=== PATIENT | female | born 1970 | race Caucasian/White ===

== ENCOUNTER 2016-08-27 19:40 | Emergency (ER) | payer OTHER ==
[~2016-08-27] VITALS: Ht 175.2 cm; Wt 122.5 kg
[~2016-08-27 19:40] MED LIST: ALLEGRA ALLERG180 M2 PO; ANTIBIOTIC O500 U/GM TP; BACTRIM DS 8001 TA1 PO; HYCODAN,HYDROME10 ML PO; HYDROCODONE BIT1 T11 PO; KEFLEX500 MG PO; KENALOG 0.1%80 GM T; PREDNICOT20 MG PO; PREDNISONE10 MG PO; PREDNISONE20 M1 PO; PROVENTIL0.09 MG/A1 INH; TESSALON PERLE100 M1 PO; VISTARIL50 MG PO; ZITHROMAX Z PA250 MG PO; ZITHROMAX250 MG PO
[2016-08-27] MEDS ORDERED: CEPHALEXIN500 M1 PO (20:26)
== END 2016-08-27 20:37 | disposition home or self-care (01) ==
LOC: ED 19:40
DX: T63.441A Toxic effect of venom of bees, accidental (unintentional), initial encounter (principal); F17.200 Nicotine dependence, unspecified, uncomplicated; Z79.899 Other long term (current) drug therapy; Y92.9 Unspecified place or not applicable

== ENCOUNTER 2016-11-22 19:10 | Emergency (ER) | payer OTHER ==
[~2016-11-22] VITALS: Ht 175.2 cm; Wt 123.8 kg
[~2016-11-22 19:10] MED LIST changes: +CEPHALEXIN500 M1 PO
[2016-11-22 19:42] LABS: BILIRUBIN NEGATIVE (NEGATIVE); BLOOD 2+ (NEGATIVE); CLARITY SL CLOUDY (CLEAR); COLOR YELLOW (YELLOW); GLUCOSE NEGATIVE (NEGATIVE); KETONE TRACE (NEGATIVE); LEUKO ESTERASE NEGATIVE (NEGATIVE); NITRITE NEGATIVE (NEGATIVE); SPECIFIC GRAVITY >= 1.030 (1.005-1.030); UROBILINOGEN 0.2 E.U./dl (0.2-1.0)
[2016-11-22 19:51] LABS: WBC 0-2 wbc/hpf (0-5)
[2016-11-22 19:52] LABS: BACTERIA 2+; MUCOUS TRACE
[2016-11-22] MEDS ORDERED: BENTYL10 MG PO (21:17)
[2016-11-22] MEDS ORDERED: NORCO 5-325 TA1 EACH PO (21:17)
== END 2016-11-22 22:56 | disposition home or self-care (01) ==
LOC: ED 19:10
PROVIDERS: Physician Assistant
DX: K80.20 Calculus of gallbladder without cholecystitis without obstruction (principal); F17.200 Nicotine dependence, unspecified, uncomplicated

== ENCOUNTER 2017-10-28 14:07 | Emergency (ER) | payer OTHER ==
[~2017-10-28] VITALS: Ht 175.2 cm; Wt 124.7 kg
--- NOTE | ~2017-10-28 | EKG ---
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
[~2017-10-28 14:07] MED LIST changes: +BENTYL10 MG PO; +NORCO 5-325 TA1 EACH PO
[2017-10-28 15:18] LABS: BILIRUBIN NEGATIVE (NEGATIVE); BLOOD TRACE-LYSED (NEGATIVE); CLARITY SL CLOUDY (CLEAR); COLOR YELLOW (YELLOW); GLUCOSE NEGATIVE (NEGATIVE); KETONE NEGATIVE (NEGATIVE); LEUKO ESTERASE 3+ (NEGATIVE); NITRITE NEGATIVE (NEGATIVE); PH 6.5 (5.0-9.0); SPECIFIC GRAVITY <= 1.005 (1.005-1.030); UROBILINOGEN 0.2 E.U./dl (0.2-1.0)
[2017-10-28 15:27] LABS: EPITHELIAL CELLS 15-20; WBC 21-30 wbc/hpf (0-5)
[2017-10-28 15:41] LABS: BASO # 0.1 10*3/uL (0.0-0.1); BASO % 0.7 % (0.0-1.0); EOS # 0.1 10*3/uL (0.0-0.4); EOS % 1.4 % (1.0-4.0); HEMATOCRIT 44.4 % (37.0-47.0); HEMOGLOBIN 14.2 g/dl (12.0-16.0); MEAN CELL VOLUME 94.9 fl (81.0-99.0); MEAN CORPUSCULAR HGB 30.3 pg (27.0-31.0); MEAN PLATELET VOLUME 11.8 fl (9.6-12.3); MONO # 0.6 10*3/uL (0.1-1.0); MONO % 7.9 % (3.0-9.0); NEUT # 4.2 10*3/uL (2.3-7.9); NEUT % 60.9 % (47.0-73.0); PLATELET COUNT AUTOMATED 178 10*3/uL (130-400); RED BLOOD COUNT 4.68 10*6/uL (4.10-5.10); RED CELL DISTRI WIDTH 13.4 % (0-14.5)
[2017-10-28 15:55] LABS: ALBUMIN 3.3 gm/dl (3.1-4.5); ALKALINE PHOSPHATASE 101 U/L (45-117); BUN 10 mg/dl (7-24); CHLORIDE 110 mmol/L (98-107); CREATININE 0.71 mg/dL (0.55-1.02); POTASSIUM 3.7 mmol/L (3.5-5.1); SGOT/AST 17 IU/L (3-35); SGPT/ALT 44 U/L (12-78); SODIUM 143 mmol/L (136-145); TOTAL PROTEIN 7.1 gm/dL (6.4-8.2)
[2017-10-28] MEDS ORDERED: CEFADROXIL500 M1 PO (16:04)
[2017-10-28] MEDS ORDERED: SEPTDS PO (16:04)
== END 2017-10-28 16:19 | disposition home or self-care (01) ==
LOC: ED 14:07
PROVIDERS: Physician Assistant
DX: L03.311 Cellulitis of abdominal wall (principal); N39.0 Urinary tract infection, site not specified; R60.0 Localized edema; F17.200 Nicotine dependence, unspecified, uncomplicated; Z90.710 Acquired absence of both cervix and uterus

== ENCOUNTER 2017-12-27 09:40 | Emergency (ER) | payer OTHER ==
[~2017-12-27] VITALS: Ht 175.2 cm; Wt 136.1 kg
[~2017-12-27 09:40] MED LIST changes: +CEFADROXIL500 M1 PO; +SEPTDS PO
[2017-12-27 10:14] LABS: BASO # 0.1 10*3/uL (0.0-0.1); BASO % 0.8 % (0.0-1.0); EOS # 0.2 10*3/uL (0.0-0.4); EOS % 2.7 % (1.0-4.0); HEMATOCRIT 47.3 % (37.0-47.0); HEMOGLOBIN 14.9 g/dl (12.0-16.0); LYMPH # 2.5 10*3/uL (1.3-4.4); LYMPH % 28.9 % (27.0-41.0); MEAN CELL VOLUME 96.3 fl (81.0-99.0); MEAN CORPUSCULAR HGB 30.3 pg (27.0-31.0); MEAN CORPUSCULAR HGB CONC 31.5 g/dl (33.0-37.0); MEAN PLATELET VOLUME 11.6 fl (9.6-12.3); MONO # 0.7 10*3/uL (0.1-1.0); MONO % 7.4 % (3.0-9.0); NEUT # 5.2 10*3/uL (2.3-7.9); PLATELET COUNT AUTOMATED 213 10*3/uL (130-400); RED BLOOD COUNT 4.91 10*6/uL (4.10-5.10); RED CELL DISTRI WIDTH 13.4 % (0-14.5); WHITE BLOOD COUNT 8.7 10*3/uL (4.8-10.8)
[2017-12-27 10:28] LABS: ALBUMIN 3.6 gm/dl (3.1-4.5); ALKALINE PHOSPHATASE 111 U/L (45-117); BUN 9 mg/dl (7-24); CHLORIDE 109 mmol/L (98-107); CREATININE 0.89 mg/dL (0.55-1.02); POTASSIUM 3.9 mmol/L (3.5-5.1); SGOT/AST 21 IU/L (3-35); SGPT/ALT 47 U/L (12-78); SODIUM 143 mmol/L (136-145); TOTAL PROTEIN 7.4 gm/dL (6.4-8.2)
[2017-12-27] MEDS ORDERED: VIBRAMYCIN100 MG PO (11:10)
== END 2017-12-27 11:23 | disposition home or self-care (01) ==
LOC: ED 09:40
PROVIDERS: Nurse Practitioner Family
DX: L03.115 Cellulitis of right lower limb (principal); R03.0 Elevated blood-pressure reading, without diagnosis of hypertension; Z88.2 Allergy status to sulfonamides; Z90.710 Acquired absence of both cervix and uterus

== ENCOUNTER 2018-05-20 23:03 | Emergency (ER) | payer OTHER ==
[~2018-05-20] VITALS: Ht 175.2 cm; Wt 131.5 kg
--- NOTE | ~2018-05-20 | EKG ---
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
[~2018-05-20 23:03] MED LIST changes: +VIBRAMYCIN100 MG PO
[2018-05-20 23:49] VITALS: BP 117/79
[2018-05-20 23:54] LABS: BASO # 0.1 10*3/uL (0.0-0.1); BASO % 0.7 % (0.0-1.0); EOS # 0.1 10*3/uL (0.0-0.4); EOS % 0.8 % (1.0-4.0); HEMATOCRIT 49.9 % (37.0-47.0); HEMOGLOBIN 15.9 g/dl (12.0-16.0); LYMPH # 2.8 10*3/uL (1.3-4.4); LYMPH % 30.1 % (27.0-41.0); MEAN CELL VOLUME 93.8 fl (81.0-99.0); MEAN CORPUSCULAR HGB 29.9 pg (27.0-31.0); MEAN CORPUSCULAR HGB CONC 31.9 g/dl (33.0-37.0); MEAN PLATELET VOLUME 11.9 fl (9.6-12.3); MONO # 0.7 10*3/uL (0.1-1.0); NEUT # 5.5 10*3/uL (2.3-7.9); NEUT % 59.4 % (47.0-73.0); PLATELET COUNT AUTOMATED 227 10*3/uL (130-400); RED BLOOD COUNT 5.32 10*6/uL (4.10-5.10); RED CELL DISTRI WIDTH 13.7 % (0-14.5); WHITE BLOOD COUNT 9.2 10*3/uL (4.8-10.8)
[2018-05-21 00:11] LABS: ACT PARTIAL THROMBO TIME 23.5 SECONDS (20.8-31.5); INTERNATIONAL NORM RATIO 0.9 (2.0-3.5)
[2018-05-21 00:12] LABS: ALBUMIN 3.3 gm/dl (3.1-4.5); ALKALINE PHOSPHATASE 116 U/L (45-117); BUN 15 mg/dl (7-24); CHLORIDE 110 mmol/L (98-107); CREATININE 0.92 mg/dL (0.55-1.02); POTASSIUM 3.4 mmol/L (3.5-5.1); SGOT/AST 14 IU/L (3-35); SGPT/ALT 38 U/L (12-78); SODIUM 142 mmol/L (136-145); TOTAL PROTEIN 7.4 gm/dL (6.4-8.2)
[2018-05-21 00:14] LABS: TROPONIN I < 0.015 ng/ml (<0.045)
== END 2018-05-21 02:30 | disposition left against medical advice (07) ==
LOC: ED 23:03 → EDHOLD 23:53 → ED 23:53
PROVIDERS: Student in an Organized Health Care Education/Training Program
DX: R07.89 Other chest pain (principal); R00.0 Tachycardia, unspecified; Z79.2 Long term (current) use of antibiotics; Z79.899 Other long term (current) drug therapy; Z86.73 Personal history of transient ischemic attack (TIA), and cerebral infarction without residual deficits; Z90.710 Acquired absence of both cervix and uterus

== ENCOUNTER 2018-08-18 21:05 | Emergency (ER) | payer OTHER ==
[~2018-08-18] VITALS: Ht 175.2 cm; Wt 129.3 kg
[2018-08-18] MEDS ORDERED: CEPHALEXIN500 M1 PO (21:41)
[2018-08-18] MEDS ORDERED: SEPTDS PO (21:41)
== END 2018-08-18 21:34 | disposition home or self-care (01) ==
LOC: ED 21:05
DX: L02.414 Cutaneous abscess of left upper limb (principal); F17.200 Nicotine dependence, unspecified, uncomplicated; Z79.2 Long term (current) use of antibiotics

== ENCOUNTER 2018-09-07 14:20 | Emergency (ER) | payer OTHER ==
[~2018-09-07] VITALS: Ht 175.2 cm; Wt 134.7 kg
== END 2018-09-07 17:40 | disposition home or self-care (01) ==
LOC: ED 14:20
DX: S93.401A Sprain of unspecified ligament of right ankle, initial encounter (principal); W22.8XXA Striking against or struck by other objects, initial encounter; Y93.89 Activity, other specified; Y92.098 Other place in other non-institutional residence as the place of occurrence of the external cause; Y99.8 Other external cause status

== ENCOUNTER → 2018-09-25 | Outpatient (CLI) | payer OTHER ==
--- NOTE | ~2018-09-25 | PF ---
[place], [place] PULMONARY FUNCTION TEST NAME: NAWAF BORRERO [facility] #: [id number] UNIT #: [id number] ROOM: DOCTOR: FERNY GAN MD,MOE BIRTHDATE: [birth year] DOS: 09/25/2018 ORDERED BY: Dr. Snyder. HISTORY: The patient is recorded as a 48-year-old female, height of 69 inches, weight of 297 pounds, BMI of 43.9. The patient was reported with symptoms of shortness of breath with exertion and history of chronic nicotine dependence. The patient reported tobacco use, 2 packs of cigarettes per day for 34 years. SPIROMETRY: FVC was recorded as 3.05 liters at 74% predicted value. FEV1 of 2.37 liters, 73% predicted value with ratio of FEV1/FVC 78%. A 14% partial improvement was noted postbronchodilator FEV1. Flow volume was suggestive of reversible obstructive lung disease. LUNG VOLUME: Thoracic gas volume recorded was 83%, residual volume 108%, total lung capacity of 93%. The patient's lung diffusion was recorded 101% and the patient's airway resistance and passive conductance is normal. FINAL IMPRESSION: Current test is suggestive of finding consistent with mild reversible obstructive lung disease or bronchial asthma. MOE ISAACS MD CM:PFREPORT:PULMONARY FUNCTION TEST [id number] MOE GAN MD
== END | disposition home or self-care (01) ==
LOC: CP 12:07 → EDSTATUS 12:09 → CP 12:10
DX: R06.09 Other forms of dyspnea (principal); Z72.0 Tobacco use

== ENCOUNTER 2018-12-19 05:37 | Emergency (ER) | payer OTHER ==
[~2018-12-19] VITALS: Ht 175.2 cm; Wt 113.4 kg
--- NOTE | ~2018-12-19 | EKG ---
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1970 Requested By: BHUMI ELIZONDO Order Number: [id number] Reading MD: Kunal Ford Measurements Intervals [place] Rate: 82 P: 66 DE: 141 QRS: 42 QRSD: 89 T: 122 QT: 367 QTc: 429 Interpretive Statements Sinus rhythm Nonspecific T abnormalities, lateral leads Compared to ECG 05/20/2018 22:56:00 T-wave abnormality now present Sinus tachycardia no longer present Ventricular premature complex(es) no longer present Aberrant conduction of supraventricular beat(s) no longer present Electronically Signed On 12-19-2018 8:05:54 PDT by Kunal Ford CM:EKGRPT:ELECTROCARDIOGRAM REPORT [id number] BHUMI ELIZONDO MD [facility] RE[facility] BHUMI ELIZONDO MD
[2018-12-19 06:19] LABS: BASO # 0.1 10*3/uL (0.0-0.1); BASO % 0.5 % (0.0-1.0); EOS # 0.2 10*3/uL (0.0-0.4); EOS % 1.7 % (1.0-4.0); HEMATOCRIT 44.9 % (37.0-47.0); HEMOGLOBIN 14.2 g/dl (12.0-16.0); LYMPH # 2.3 10*3/uL (1.3-4.4); LYMPH % 24.3 % (27.0-41.0); MEAN CELL VOLUME 97.2 fl (81.0-99.0); MEAN CORPUSCULAR HGB 30.7 pg (27.0-31.0); MEAN CORPUSCULAR HGB CONC 31.6 g/dl (33.0-37.0); MEAN PLATELET VOLUME 11.8 fl (9.6-12.3); MONO # 0.8 10*3/uL (0.1-1.0); MONO % 8.4 % (3.0-9.0); NEUT # 6.2 10*3/uL (2.3-7.9); NEUT % 64.9 % (47.0-73.0); PLATELET COUNT AUTOMATED 190 10*3/uL (130-400); RED BLOOD COUNT 4.62 10*6/uL (4.10-5.10); RED CELL DISTRI WIDTH 13.6 % (0-14.5); WHITE BLOOD COUNT 9.5 10*3/uL (4.8-10.8)
[2018-12-19 06:38] LABS: ACT PARTIAL THROMBO TIME 25.2 SECONDS (20.0-32.1); INTERNATIONAL NORM RATIO 0.9 (2.0-3.5)
[2018-12-19 06:41] LABS: ALBUMIN 3.1 gm/dl (3.1-4.5); ALKALINE PHOSPHATASE 107 U/L (45-117); BUN 17 mg/dl (7-24); CHLORIDE 109 mmol/L (98-107); CREATININE 1.01 mg/dL (0.55-1.02); LIPASE 127 U/L (73-393); POTASSIUM 3.7 mmol/L (3.5-5.1); SGOT/AST 10 IU/L (3-35); SGPT/ALT 32 U/L (12-78); SODIUM 141 mmol/L (136-145)
[2018-12-19 06:42] LABS: TROPONIN I < 0.015 ng/ml (<0.045)
[2018-12-19] MEDS ORDERED: CYCLOBENZAPRINE10 MG PO (08:34)
[2018-12-19] MEDS ORDERED: Motrin,Rufen800 MG PO (08:34)
== END 2018-12-19 08:40 | disposition home or self-care (01) ==
LOC: ED 05:37
PROVIDERS: Emergency Medicine Emergency Medical Services
DX: S39.012A Strain of muscle, fascia and tendon of lower back, initial encounter (principal); M54.6 Pain in thoracic spine; E66.9 Obesity, unspecified; I10 Essential (primary) hypertension; Z86.718 Personal history of other venous thrombosis and embolism; Z90.710 Acquired absence of both cervix and uterus; X50.1XXA Overexertion from prolonged static or awkward postures, initial encounter; Y93.89 Activity, other specified; Y92.89 Other specified places as the place of occurrence of the external cause; Y99.8 Other external cause status

== ENCOUNTER → 2018-12-23 | Outpatient (CLI) | payer OTHER ==
[~2018-12-23] MED LIST changes: +CYCLOBENZAPRINE10 MG PO; +Motrin,Rufen800 MG PO
== END | disposition home or self-care (01) ==
LOC: CARD 10-28 14:00
DX: I05.9 Rheumatic mitral valve disease, unspecified (principal)

== ENCOUNTER 2019-11-14 19:46 | Emergency (ER) | payer OTHER ==
[~2019-11-14] VITALS: Ht 175.2 cm; Wt 132.4 kg
== END 2019-11-14 23:22 | disposition home or self-care (01) ==
LOC: ED 19:46
DX: S86.911A Strain of unspecified muscle(s) and tendon(s) at lower leg level, right leg, initial encounter (principal); Z79.899 Other long term (current) drug therapy; X58.XXXA Exposure to other specified factors, initial encounter; Y93.89 Activity, other specified; Y92.89 Other specified places as the place of occurrence of the external cause; Y99.8 Other external cause status

== ENCOUNTER → 2019-11-26 | Outpatient (CLI) | payer OTHER | END | disposition home or self-care (01) | LOC: MRI 12:34 | PROVIDERS: ATTEND Psychiatry & Neurology Psychiatry | DX: S83.241A Other tear of medial meniscus, current injury, right knee, initial encounter (principal); S83.281A Other tear of lateral meniscus, current injury, right knee, initial encounter; S83.8X1A Sprain of other specified parts of right knee, initial encounter; S83.411A Sprain of medial collateral ligament of right knee, initial encounter; M71.21 Synovial cyst of popliteal space [Baker], right knee; M25.761 Osteophyte, right knee; M25.461 Effusion, right knee; M85.661 Other cyst of bone, right lower leg; M17.5 Other unilateral secondary osteoarthritis of knee; X58.XXXA Exposure to other specified factors, initial encounter; Y93.89 Activity, other specified; Y92.89 Other specified places as the place of occurrence of the external cause; Y99.8 Other external cause status ==

== ENCOUNTER → 2019-12-28 | Outpatient (CLI) | payer OTHER | END | disposition home or self-care (01) | LOC: COVID19 00:50 | PROVIDERS: ATTEND Orthopaedic Surgery | DX: Z01.812 Encounter for preprocedural laboratory examination (principal); Z20.828 Contact with and (suspected) exposure to other viral communicable diseases ==

== ENCOUNTER → 2019-12-31 | Day surgery (SDC) | payer OTHER ==
[2019-12-25 12:53] VITALS: BP 157/88
[2019-12-28 11:52] LABS: BASO % 0.4 % (0.0-1.0); EOS # 0.1 10*3/uL (0.0-0.4); EOS % 1.5 % (1.0-4.0); HEMATOCRIT 50.5 % (37.0-47.0); LYMPH # 1.6 10*3/uL (1.3-4.4); LYMPH % 23.4 % (27.0-41.0); MEAN CELL VOLUME 96.6 fl (81.0-99.0); MEAN CORPUSCULAR HGB 29.6 pg (27.0-31.0); MEAN CORPUSCULAR HGB CONC 30.7 g/dl (33.0-37.0); MEAN PLATELET VOLUME 11.9 fl (9.6-12.3); MONO # 0.5 10*3/uL (0.1-1.0); MONO % 6.5 % (3.0-9.0); NEUT # 4.7 10*3/uL (2.3-7.9); NEUT % 67.9 % (47.0-73.0); PLATELET COUNT AUTOMATED 200 10*3/uL (130-400); RED BLOOD COUNT 5.23 10*6/uL (4.10-5.10); RED CELL DISTRI WIDTH 13.8 % (0-14.5); WHITE BLOOD COUNT 6.9 10*3/uL (4.8-10.8)
[2019-12-28 12:17] LABS: BUN 10 mg/dl (7-24); CHLORIDE 108 mmol/L (98-107); CREATININE 0.76 mg/dL (0.55-1.02); POTASSIUM 4.1 mmol/L (3.5-5.1); SODIUM 144 mmol/L (136-145)
[~2019-12-31] VITALS: Ht 175.2 cm; Wt 143.8 kg
[2019-12-31 08:45] VITALS: BP 180/99
[2019-12-31 11:08] VITALS: BP 199/79
[2019-12-31 11:23] VITALS: BP 206/68
[2019-12-31 11:39] VITALS: BP 162/78
[2019-12-31 11:53] VITALS: BP 129/72
[2019-12-31 12:07] VITALS: BP 149/77
== END ==
LOC: SDC 12-25 12:30
PROVIDERS: ATTEND Orthopaedic Surgery
DX: S83.231A Complex tear of medial meniscus, current injury, right knee, initial encounter (principal); M23.300 Other meniscus derangements, unspecified lateral meniscus, right knee; M17.11 Unilateral primary osteoarthritis, right knee; I10 Essential (primary) hypertension; J44.9 Chronic obstructive pulmonary disease, unspecified; Z90.49 Acquired absence of other specified parts of digestive tract; Z90.710 Acquired absence of both cervix and uterus; Z98.890 Other specified postprocedural states; X58.XXXA Exposure to other specified factors, initial encounter; Y93.89 Activity, other specified; Y92.89 Other specified places as the place of occurrence of the external cause; Y99.8 Other external cause status

== ENCOUNTER 2021-08-02 08:49 | Emergency (ER) | payer OTHER ==
[~2021-08-02] VITALS: Wt 131.5 kg
== END 2021-08-02 11:52 | disposition home or self-care (01) ==
LOC: ED 08:49
DX: H61.21 Impacted cerumen, right ear (principal); I10 Essential (primary) hypertension; Z90.710 Acquired absence of both cervix and uterus; Z98.890 Other specified postprocedural states; Z90.49 Acquired absence of other specified parts of digestive tract

== ENCOUNTER 2023-04-17 21:25 | Inpatient (IN) | payer OTHER ==
[~2023-04-17] VITALS: Ht 175.2 cm; Wt 156.5 kg
[2023-04-17] MEDS ORDERED: ADENOSINE 12 MG IV ONE (21:45)
[2023-04-17] MEDS ORDERED: ADENOSINE 6 MG/2 ML VIAL IV ONE ×4 (21:45→21:57)
[2023-04-17] MEDS ORDERED: SODIUM CHLORIDE 0.9% 1,000 ML IV ONE ×2 (21:55→21:57)
[2023-04-17] MEDS ORDERED: Metoprolol Tartrate 5 MG/5 ML VIAL IV ONE ×2 (21:55→22:45)
[2023-04-17 22:00] VITALS: BP 134/53
[2023-04-17] MEDS ORDERED: DILTIAZEM IV ONE (22:00)
[2023-04-17] MEDS ORDERED: methylPREDNISolone sod succ 125 MG VIAL IV ONE (22:20)
[2023-04-17 22:33] VITALS: BP 167/99
[2023-04-17 22:33] LABS: HEMATOCRIT 52.4 % (37.0-47.0); MEAN CELL VOLUME 97.4 fl (81.0-99.0); MEAN CORPUSCULAR HGB 28.8 pg (27.0-31.0); MEAN CORPUSCULAR HGB CONC 29.6 g/dl (33.0-37.0); MEAN PLATELET VOLUME 10.9 fl (9.6-12.3); NUCLEATED RED BLOOD CELL 0.4 10*3/uL (0.0-0.0); NUCLEATED RED BLOOD CELL 2.8 % (0.0-0.0); PLATELET COUNT AUTOMATED 263 10*3/uL (130-400); RED BLOOD COUNT 5.38 10*6/uL (4.10-5.10); RED CELL DISTRI WIDTH 15.3 % (0-14.5); WHITE BLOOD COUNT 12.7 10*3/uL (4.8-10.8)
[2023-04-17 22:36] LABS: MANUAL DIFF REFLEX YES
[2023-04-17 22:45] LABS: ACT PARTIAL THROMBO TIME 27.9 SECONDS (20.0-32.1)
[2023-04-17] MEDS ORDERED: SODIUM CHLORIDE 0.9% 1,000 ML IV SCH (22:45)
[2023-04-17] MEDS ORDERED: Ceftriaxone Sodium 1 GM/10 ML SYR IV ONE (22:45)
[2023-04-17] MEDS ORDERED: AZITHROMYCIN 250 ML IV ONE (22:45)
[2023-04-17 22:46] VITALS: BP 185/90
[2023-04-17 22:53] LABS: ALKALINE PHOSPHATASE 114 U/L (46-116); BUN 12 mg/dl (9-23); CHLORIDE 99 mmol/L (98-107); POTASSIUM 2.9 mmol/L (3.4-5.1); SGPT/ALT 30 U/L (5-49); TOTAL PROTEIN 7.6 gm/dL (6.0-8.0)
[2023-04-17 22:57] LABS: PLATELET SUFFICIENCY NORMAL (NORMAL); POLYCHROMASIA SLIGHT; TOTAL CELLS COUNTED 100 #CELLS
[2023-04-17 22:59] VITALS: BP 170/98
[2023-04-17] MEDS ORDERED: Midazolam Hydrochloride 2 MG/2 ML VIAL IV ONE (23:05)
[2023-04-17 23:16] VITALS: BP 94/55
[2023-04-18] VITALS (16 sets, daily range): BP systolic 112–175; BP diastolic 65–99
[2023-04-18] MEDS ORDERED: POTASSIUM CHLORIDE IN WATER 100 ML IV SCH (01:00)
[2023-04-18] MEDS ORDERED: Magnesium Hydroxide 30 ML UDC PO PRN (01:20)
[2023-04-18] MEDS ORDERED: Ondansetron Hydrochloride 4 MG/2 ML VIAL IV PRN (01:20)
[2023-04-18] MEDS ORDERED: Acetaminophen/Hydrocodone 5 MG/325 MG TABLET PO PRN (01:20)
[2023-04-18] MEDS ORDERED: ACETAMINOPHEN 325 MG TAB PO PRN (01:20)
[2023-04-18] MEDS ORDERED: MORPHINE Sulfate 2 MG/ML SYR IV PRN (01:20)
[2023-04-18] MEDS ORDERED: BISACODYL 5 MG TAB PO PRN (01:20)
[2023-04-18] MEDS ORDERED: TEMAZEPAM 15 MG CAP PO PRN (01:20)
[2023-04-18] MEDS ORDERED: NORVASC10 MG PO (01:24)
[2023-04-18] MEDS ORDERED: LEXAPRO10 MG PO (01:24)
[2023-04-18] MEDS ORDERED: DOXYCYCLINE HY100 M3 PO (01:24)
[2023-04-18] MEDS ORDERED: Albuterol Sulf/Ipratropium 3 ML VIAL NEB PRN (02:15)
[2023-04-18] MEDS ORDERED: HEPARIN SODIUM 250 ML IV SCH (02:50)
[2023-04-18] MEDS ORDERED: POTASSIUM CHLORIDE IV ONE (04:03)
[2023-04-18] MEDS ORDERED: [UNRECOGNIZED DRUG - OTHER] IV ONE (04:03)
[2023-04-18 04:56] LABS: ALKALINE PHOSPHATASE 113 U/L (46-116); BUN 13 mg/dl (9-23); CHLORIDE 105 mmol/L (98-107); CHOLESTEROL 115 mg/dL (<200); FREE T4 0.82 ng/dl (0.89-1.76); LDL CHOLESTEROL 69 mg/dL (9-159); SGPT/ALT 29 U/L (5-49); TOTAL PROTEIN 7.4 gm/dL (6.0-8.0); TRIGLYCERIDES 91 mg/dl (<150)
[2023-04-18 05:02] LABS: POTASSIUM 3.9 mmol/L (3.4-5.1)
[2023-04-18 06:56] LABS: HEMATOCRIT 52.2 % (37.0-47.0); MEAN CORPUSCULAR HGB 29.6 pg (27.0-31.0); MEAN CORPUSCULAR HGB CONC 29.1 g/dl (33.0-37.0); MEAN PLATELET VOLUME 11.2 fl (9.6-12.3); NUCLEATED RED BLOOD CELL 0.2 10*3/uL (0.0-0.0); NUCLEATED RED BLOOD CELL 1.6 % (0.0-0.0); PLATELET COUNT AUTOMATED 258 10*3/uL (130-400); RED BLOOD COUNT 5.13 10*6/uL (4.10-5.10); RED CELL DISTRI WIDTH 15.6 % (0-14.5); WHITE BLOOD COUNT 14.8 10*3/uL (4.8-10.8)
[2023-04-18 06:57] LABS: MANUAL DIFF REFLEX YES; MEAN CELL VOLUME 101.8 fl (81.0-99.0)
[2023-04-18 07:50] LABS: PLATELET SUFFICIENCY NORMAL (NORMAL); TOTAL CELLS COUNTED 100 #CELLS
[2023-04-18 08:18] LABS: ABG BASE EXCESS 0.6 mmol/L (-2.0-2.0)
[2023-04-18 08:22] LABS: ARTERIAL BLOOD GAS PH 7.037 (7.35-7.45)
[2023-04-18] MEDS ORDERED: FUROSEMIDE 20 MG/2 ML VIAL IV ONE (09:45)
[2023-04-18] MEDS ORDERED: Enoxaparin Sodium 40 MG/0.4 ML SYR SC SCH (10:00)
[2023-04-18] MEDS ORDERED: amLODIPine besylate 5 MG TAB PO SCH (10:00)
[2023-04-18] MEDS ORDERED: methylPREDNISolone sod succ 40 MG VIAL IV SCH (10:00)
[2023-04-18] MEDS ORDERED: Doxycycline Hyclate 100 MG in SODIUM CHLORIDE 0.9% 250 ML IV SCH (10:00)
[2023-04-18] MEDS ORDERED: GUAIFENESIN 600 MG TAB ER PO SCH (10:00)
[2023-04-18] MEDS ORDERED: ESCITALOPRAM OXALATE 10 MG TAB PO SCH (10:00)
[2023-04-18] MEDS ORDERED: amLODIPine besylate 10 MG TAB PO SCH (10:00)
[2023-04-18 12:06] LABS: ABG BASE EXCESS 2.7 mmol/L (-2.0-2.0); ARTERIAL BLOOD GAS PH 7.239 (7.35-7.45)
[2023-04-18] MEDS ORDERED: Nicotine 21 MG PATCH T SCH (16:30)
[2023-04-18] MEDS ORDERED: LORazepam 1 MG TAB PO PRN (17:35)
[2023-04-18] MEDS ORDERED: Ceftriaxone Sodium 1 GM in SYRINGE INFUSION 10 ML IV SCH (22:00)
[2023-04-18] MEDS ORDERED: HEPARIN SODIUM 5,000 UNIT/ML VIAL SC SCH ×2 (22:00)
[2023-04-19] VITALS (16 sets, daily range): BP systolic 143–190; BP diastolic 61–119
[2023-04-19 06:00] LABS: BASO % 0.1 % (0.0-1.0); HEMATOCRIT 48.4 % (37.0-47.0); LYMPH # 1.4 10*3/uL (1.3-4.4); LYMPH % 9.1 % (27.0-41.0); MEAN CELL VOLUME 100.2 fl (81.0-99.0); MEAN CORPUSCULAR HGB CONC 28.9 g/dl (33.0-37.0); MEAN PLATELET VOLUME 10.9 fl (9.6-12.3); MONO # 1.1 10*3/uL (0.1-1.0); NEUT # 12.6 10*3/uL (2.3-7.9); NEUT % 83.2 % (47.0-73.0); NUCLEATED RED BLOOD CELL 0.1 10*3/uL (0.0-0.0); NUCLEATED RED BLOOD CELL 0.7 % (0.0-0.0); PLATELET COUNT AUTOMATED 234 10*3/uL (130-400); RED BLOOD COUNT 4.83 10*6/uL (4.10-5.10); RED CELL DISTRI WIDTH 15.4 % (0-14.5); WHITE BLOOD COUNT 15.1 10*3/uL (4.8-10.8)
[2023-04-19 06:59] LABS: ALKALINE PHOSPHATASE 92 U/L (46-116); CHLORIDE 104 mmol/L (98-107); POTASSIUM 3.6 mmol/L (3.4-5.1); SGPT/ALT 22 U/L (5-49)
[2023-04-19 07:00] LABS: BUN 24 mg/dl (9-23)
[2023-04-19 09:15] LABS: ABG BASE EXCESS 4.9 mmol/L (-2.0-2.0); ARTERIAL BLOOD GAS PH 7.379 (7.35-7.45)
[2023-04-19] MEDS ORDERED: Metoprolol Tartrate 25 MG TAB PO SCH ×2 (12:15→22:00)
[2023-04-19] MEDS ORDERED: Labetalol Hydrochloride 20 MG/4 ML SYR IV ONE (14:25)
[2023-04-19] MEDS ORDERED: Na Phos, Dibasic/Na Phos, Mo 1 EA BOT R ONE (18:00)
[2023-04-19] MEDS ORDERED: BISACODYL 5 MG TAB PO SCH (20:55)
[2023-04-19] MEDS ORDERED: Polyethylene Glycol 3350 17 GM PACKET NG SCH (21:00)
[2023-04-20] VITALS (7 sets, daily range): BP systolic 138–188; BP diastolic 45–107
[2023-04-20 06:09] LABS: BASO % 0.1 % (0.0-1.0); EOS % 0.2 % (1.0-4.0); HEMATOCRIT 47.6 % (37.0-47.0); LYMPH # 1.5 10*3/uL (1.3-4.4); LYMPH % 8.8 % (27.0-41.0); MEAN CELL VOLUME 97.7 fl (81.0-99.0); MEAN CORPUSCULAR HGB 29.4 pg (27.0-31.0); MEAN PLATELET VOLUME 10.8 fl (9.6-12.3); MONO # 0.9 10*3/uL (0.1-1.0); NEUT # 14.3 10*3/uL (2.3-7.9); NEUT % 84.9 % (47.0-73.0); NUCLEATED RED BLOOD CELL 0.1 10*3/uL (0.0-0.0); NUCLEATED RED BLOOD CELL 0.4 % (0.0-0.0); PLATELET COUNT AUTOMATED 237 10*3/uL (130-400); RED BLOOD COUNT 4.87 10*6/uL (4.10-5.10); RED CELL DISTRI WIDTH 15.4 % (0-14.5); WHITE BLOOD COUNT 16.9 10*3/uL (4.8-10.8)
[2023-04-20 06:18] LABS: BUN 24 mg/dl (9-23); CHLORIDE 103 mmol/L (98-107); POTASSIUM 3.5 mmol/L (3.4-5.1)
[2023-04-20] MEDS ORDERED: Polyethylene Glycol 3350 17 GM PACKET NG SCH (10:00)
[2023-04-20 15:04] LABS: BILIRUBIN Negative (Negative); BLOOD 3+ (Negative); CLARITY Turbid (Clear); COLOR Orange (Yellow); GLUCOSE Negative (Negative); KETONE Negative (Negative); LEUKO ESTERASE 1+ (Negative); NITRITE Negative (Negative); SPECIFIC GRAVITY 1.025 (1.001-1.030); UROBILINOGEN 0.2 E.U./dl (0.0-1.0)
[2023-04-20 15:13] LABS: BACTERIA 1+; RBC TNTC rbc/hpf (0-2)
[2023-04-20] MEDS ORDERED: Metoclopramide Hydrochloride 10 MG/2 ML AMP IV SCH (19:00)
[2023-04-20] MEDS ORDERED: hydrALAZINE hydrochloride 20 MG/ML VIAL IV ONE (19:35)
[2023-04-21] VITALS: BP 165/90
[2023-04-21 04:00] VITALS: BP 157/83
[2023-04-21 05:40] LABS: BUN 23 mg/dl (9-23); CHLORIDE 103 mmol/L (98-107); POTASSIUM 3.5 mmol/L (3.4-5.1)
[2023-04-21 06:20] LABS: BASO % 0.2 % (0.0-1.0); EOS % 0.2 % (1.0-4.0); HEMATOCRIT 52.9 % (37.0-47.0); LYMPH # 1.8 10*3/uL (1.3-4.4); LYMPH % 10.8 % (27.0-41.0); MEAN CELL VOLUME 99.2 fl (81.0-99.0); MEAN CORPUSCULAR HGB 28.5 pg (27.0-31.0); MEAN CORPUSCULAR HGB CONC 28.7 g/dl (33.0-37.0); MEAN PLATELET VOLUME 10.8 fl (9.6-12.3); MONO # 1.4 10*3/uL (0.1-1.0); MONO % 8.8 % (3.0-9.0); NEUT # 12.8 10*3/uL (2.3-7.9); NEUT % 79.1 % (47.0-73.0); NUCLEATED RED BLOOD CELL 0.2 % (0.0-0.0); PLATELET COUNT AUTOMATED 269 10*3/uL (130-400); RED BLOOD COUNT 5.33 10*6/uL (4.10-5.10); RED CELL DISTRI WIDTH 15.5 % (0-14.5); WHITE BLOOD COUNT 16.2 10*3/uL (4.8-10.8)
[2023-04-21 08:00] VITALS: BP 144/77
[2023-04-21] MEDS ORDERED: methylPREDNISolone sod succ 40 MG VIAL IV SCH (10:00)
[2023-04-21 12:00] VITALS: BP 169/92
[2023-04-21 16:00] VITALS: BP 163/82
[2023-04-21 20:00] VITALS: BP 169/84
[2023-04-21] MEDS ORDERED: Ondansetron Hydrochloride 4 MG TAB SL PRN (22:33)
[2023-04-21] MEDS ORDERED: Doxycycline Hyclate 100 MG CAP PO SCH (22:35)
[2023-04-22] VITALS: BP 163/55
[2023-04-22] MEDS ORDERED: Metoclopramide Hydrochloride 5 MG TAB PO SCH
[2023-04-22 06:10] LABS: BUN 18 mg/dl (9-23); CHLORIDE 104 mmol/L (98-107)
[2023-04-22 06:16] LABS: BASO % 0.1 % (0.0-1.0); EOS % 0.1 % (1.0-4.0); HEMATOCRIT 48.3 % (37.0-47.0); LYMPH % 14.4 % (27.0-41.0); MEAN CELL VOLUME 97.2 fl (81.0-99.0); MEAN CORPUSCULAR HGB 28.8 pg (27.0-31.0); MEAN CORPUSCULAR HGB CONC 29.6 g/dl (33.0-37.0); MEAN PLATELET VOLUME 10.7 fl (9.6-12.3); MONO # 1.3 10*3/uL (0.1-1.0); MONO % 9.3 % (3.0-9.0); NEUT # 10.2 10*3/uL (2.3-7.9); NEUT % 75.4 % (47.0-73.0); PLATELET COUNT AUTOMATED 198 10*3/uL (130-400); RED BLOOD COUNT 4.97 10*6/uL (4.10-5.10); RED CELL DISTRI WIDTH 15.6 % (0-14.5); WHITE BLOOD COUNT 13.6 10*3/uL (4.8-10.8)
[2023-04-22 07:39] VITALS: BP 147/89
[2023-04-22] MEDS ORDERED: POTASSIUM CHLORIDE 20 MEQ TAB PO ONE (07:45)
[2023-04-22] MEDS ORDERED: methylPREDNISolone sod succ 40 MG VIAL IM SCH (10:00)
[2023-04-22 11:31] VITALS: BP 152/65
[2023-04-22 16:00] VITALS: BP 153/68
[2023-04-22 20:00] VITALS: BP 160/85
[2023-04-23] VITALS: BP 164/74
[2023-04-23 06:35] LABS: BASO % 0.1 % (0.0-1.0); EOS % 0.1 % (1.0-4.0); HEMATOCRIT 47.2 % (37.0-47.0); LYMPH # 1.8 10*3/uL (1.3-4.4); LYMPH % 14.7 % (27.0-41.0); MEAN CELL VOLUME 96.5 fl (81.0-99.0); MEAN CORPUSCULAR HGB CONC 30.1 g/dl (33.0-37.0); MEAN PLATELET VOLUME 10.7 fl (9.6-12.3); MONO # 1.1 10*3/uL (0.1-1.0); MONO % 8.8 % (3.0-9.0); NEUT # 9.5 10*3/uL (2.3-7.9); NEUT % 75.6 % (47.0-73.0); PLATELET COUNT AUTOMATED 200 10*3/uL (130-400); RED BLOOD COUNT 4.89 10*6/uL (4.10-5.10); RED CELL DISTRI WIDTH 15.6 % (0-14.5); WHITE BLOOD COUNT 12.5 10*3/uL (4.8-10.8)
[2023-04-23 06:54] LABS: BUN 15 mg/dl (9-23); CHLORIDE 104 mmol/L (98-107); POTASSIUM 3.2 mmol/L (3.4-5.1)
[2023-04-23] MEDS ORDERED: POTASSIUM CHLORIDE 20 MEQ TAB PO ONE (07:25)
[2023-04-23 08:00] VITALS: BP 142/50
[2023-04-23] MEDS ORDERED: amLODIPine besylate 5 MG TAB PO SCH (10:00)
[2023-04-23 12:00] VITALS: BP 129/74
[2023-04-23 12:11] LABS: ABG BASE EXCESS 8.9 mmol/L (-2.0-2.0); ARTERIAL BLOOD GAS PH 7.488 (7.35-7.45)
[2023-04-23 16:00] VITALS: BP 147/81
[2023-04-23 20:00] VITALS: BP 157/85
[2023-04-23] MEDS ORDERED: Lidocaine Hydrochloride 5 ML AMP IM SCH (22:00)
[2023-04-24] VITALS: BP 167/88
[2023-04-24 05:04] LABS: BUN 14 mg/dl (9-23); CHLORIDE 107 mmol/L (98-107); POTASSIUM 3.4 mmol/L (3.4-5.1)
[2023-04-24 06:34] LABS: BASO % 0.1 % (0.0-1.0); EOS % 0.1 % (1.0-4.0); LYMPH # 1.9 10*3/uL (1.3-4.4); LYMPH % 14.9 % (27.0-41.0); MEAN CELL VOLUME 96.6 fl (81.0-99.0); MEAN CORPUSCULAR HGB 28.8 pg (27.0-31.0); MEAN CORPUSCULAR HGB CONC 29.8 g/dl (33.0-37.0); MEAN PLATELET VOLUME 11.1 fl (9.6-12.3); MONO # 1.1 10*3/uL (0.1-1.0); MONO % 8.6 % (3.0-9.0); NEUT # 9.6 10*3/uL (2.3-7.9); NEUT % 75.8 % (47.0-73.0); PLATELET COUNT AUTOMATED 185 10*3/uL (130-400); RED BLOOD COUNT 4.76 10*6/uL (4.10-5.10); RED CELL DISTRI WIDTH 15.5 % (0-14.5); WHITE BLOOD COUNT 12.7 10*3/uL (4.8-10.8)
[2023-04-24 08:00] VITALS: BP 161/91
[2023-04-24] MEDS ORDERED: predniSONE 10 MG TAB PO SCH (10:00)
[2023-04-24 12:00] VITALS: BP 160/84
[2023-04-24] MEDS ORDERED: DOXYCYCLINE MO100 MG PO (13:26)
[2023-04-24] MEDS ORDERED: LOPRESSOR25 MG PO (13:26)
[2023-04-24] MEDS ORDERED: PREDNISONE10 MG PO (13:26)
== END 2023-04-24 14:15 | disposition home or self-care (01) | DRG 871 ==
LOC: ED 21:25 → 4E 04-18 00:39 → EDHOLD 04-18 00:39 → ICCU 04-18 00:39 → EDHOLD 04-18 08:28 → ICCU 04-18 11:25 → 4E 04-22 11:52
PROVIDERS: Internal Medicine; Internal Medicine Critical Care Medicine; Student in an Organized Health Care Education/Training Program; ADMIT Family Medicine; ATTEND Family Medicine
PROC: 5A09357 Assistance with Respiratory Ventilation, Less than 24 Consecutive Hours, Continuous Positive Airway Pressure (ICD-10-PCS; principal; 2023-04-17)
PROC: 5A09357 Assistance with Respiratory Ventilation, Less than 24 Consecutive Hours, Continuous Positive Airway Pressure (ICD-10-PCS; 2023-04-18)
PROC: 5A0935A Assistance with Respiratory Ventilation, Less than 24 Consecutive Hours, High Flow/Velocity Cannula (ICD-10-PCS; 2023-04-18)
PROC: 5A09357 Assistance with Respiratory Ventilation, Less than 24 Consecutive Hours, Continuous Positive Airway Pressure (ICD-10-PCS; 2023-04-19)
PROC: 5A0945A Assistance with Respiratory Ventilation, 24-96 Consecutive Hours, High Flow/Velocity Cannula (ICD-10-PCS; 2023-04-19)
PROC: 0D9670Z Drainage of Stomach with Drainage Device, Via Natural or Artificial Opening (ICD-10-PCS; 2023-04-19)
PROC: 5A09357 Assistance with Respiratory Ventilation, Less than 24 Consecutive Hours, Continuous Positive Airway Pressure (ICD-10-PCS; 2023-04-21)
PROC: 5A0945A Assistance with Respiratory Ventilation, 24-96 Consecutive Hours, High Flow/Velocity Cannula (ICD-10-PCS; 2023-04-21)
DX: A41.9 Sepsis, unspecified organism (principal); I21.4 Non-ST elevation (NSTEMI) myocardial infarction; J18.9 Pneumonia, unspecified organism; N17.0 Acute kidney failure with tubular necrosis; J96.21 Acute and chronic respiratory failure with hypoxia; J96.22 Acute and chronic respiratory failure with hypercapnia; J44.1 Chronic obstructive pulmonary disease with (acute) exacerbation; J44.0 Chronic obstructive pulmonary disease with (acute) lower respiratory infection; I47.10 Supraventricular tachycardia, unspecified; E44.0 Moderate protein-calorie malnutrition; I47.19 Other supraventricular tachycardia; K56.699 Other intestinal obstruction unspecified as to partial versus complete obstruction; I10 Essential (primary) hypertension; F41.9 Anxiety disorder, unspecified; E87.6 Hypokalemia; R65.20 Severe sepsis without septic shock; R73.9 Hyperglycemia, unspecified; E66.01 Morbid (severe) obesity due to excess calories; Z90.710 Acquired absence of both cervix and uterus; Z90.49 Acquired absence of other specified parts of digestive tract; Z98.891 History of uterine scar from previous surgery; Z79.899 Other long term (current) drug therapy